=== PATIENT | female | born 1965 | race Caucasian/White ===

== ENCOUNTER → 2016-09-19 | Outpatient (CLI) | payer OTHER ==
[~2016-09-19] MED LIST: ALDACTONE25 MG PO; COREG PO; COUMADIN10 MG PO; COZAAR PO; DEPO-PROVER150 MG/ML INJ; LASIX PO; LEXAPRO PO; NITROSTAT0.4 MG SL; NO MEDICATIONS; PHENERGAN25 M1
[2016-09-19 13:22] LABS: CALCIUM SERUM 9.7 mg/dL (8.4-10.2); GLOM FILT RATE Estimated 65.7 mL/min (>60)
== END | disposition home or self-care (01) ==
LOC: CLAB 11:57
PROVIDERS: Internal Medicine Cardiovascular Disease
DX: I42.9 Cardiomyopathy, unspecified (principal); I50.22 Chronic systolic (congestive) heart failure
CPT/HCPCS: 36415; 80048